=== PATIENT | female | born 1995 | race American Indian/Alaskan Native ===

== ENCOUNTER 2018-01-28 14:11 | Emergency (ER) | payer SELFPAY ==
[2018-01-28 14:30] VITALS: TEMP 98
--- NOTE | 2018-01-28 16:26 | C.PDOC ---
History Of Present Illness Patient is a 22 y/o female who presents to the ED with a complaint of right shoulder pain s/p slipping and falling yesterday. Patient reports falling onto right shoulder. Denies any weakness or numbness. No other physical complaints at this time. Time Seen by Provider: 01/28/18 14:34 Chief Complaint (Nursing): Upper Extremity Problem/Injury History Per: Patient History/Exam Limitations: no limitations Onset/Duration Of Symptoms: Days (yesterday) Current Symptoms Are (Timing): Still Present Recent travel outside of the [place]: No Past Medical History Reviewed: Historical Data, Nursing Documentation, Vital Signs Vital Signs: Last Vital Signs Temp 98.0 F 01/28/18 16:34 Pulse 80 01/28/18 16:34 Resp 18 01/28/18 16:34 BP 124/72 01/28/18 16:34 Pulse Ox 100 01/28/18 19:03 - Medical History PMH: No Chronic Diseases Surgical History: No Surg Hx Family History: States: No Known Family Hx - Social History Hx Tobacco Use: No Hx Alcohol Use: No Hx Substance Use: No - Immunization History Hx Tetanus Toxoid Vaccination: No Hx Influenza Vaccination: No Hx Pneumococcal Vaccination: No Review Of Systems Musculoskeletal: Positive for: Shoulder Pain (right shoulder ) Neurological: Negative for: Weakness, Numbness Physical Exam - Physical Exam Appears: Well, No Acute Distress Skin: Normal Color, Warm, Dry Head: Atraumatic, Normacephalic Eye(s): bilateral: Normal Inspection Oral Mucosa: Moist Neck: Normal ROM, No Midline Cervical Tenderness, No Paracervical Tenderness Chest: No Deformity, No Tenderness Gastrointestinal/Abdominal: Soft, No Tenderness Extremity: No Normal ROM (decreased ROM of right shoulder secondary to pain), Tenderness (diffuse tenderness to palpation to right shoulder area), No Swelling , Other (negative bruising or erythema to right shoulder ) Neurological/Psych: Oriented x3, Normal Speech, Normal Cognition ED Course And Treatment O2 Sat by Pulse Oximetry: 100 - Other Rad Right shoulder XR X-Ray: Interpreted by Me, Viewed By Me Interpretation: Right shoulder three views. History: Fall. Shoulder injury. Comparison: None available. Findings: No evidence of acute displaced fracture or dislocation. Joint spaces are preserved. Impression: Negative acute. If pain persists, consider MRI. Progress Note: Right shoulder XR ordered. Arm sling applied to right arm. Patient is stable for discharge. Disposition - Disposition Referrals: Rafael Claros III, MD [Staff Provider] - Disposition: HOME/ ROUTINE Disposition Time: 16:23 Condition: STABLE Additional Instructions: Follow up with PMD and Orthopedist within 1-2 days. Return to ED if feel worse. Prescriptions: Ibuprofen [Motrin Tab] 600 mg PO Q8 #30 tab Instructions: Shoulder Sprain Forms: [employer] (Sing[place]an) - Clinical Impression Clinical Impression: Shoulder sprain - Scribe Statement The provider has reviewed the documentation as recorded by the Scribe Ann Diamond All medical record entries made by the Scribe were at my direction and personally dictated by me. I have reviewed the chart and agree that the record accurately reflects my personal performance of the history, physical exam, medical decision making, and the department course for this patient. I have also personally directed, reviewed, and agree with the discharge instructions and disposition.
[2018-01-28 16:36] VITALS: BP 124/72; PULSE 80; RESP 18
--- NOTE | 2018-01-28 17:41 | RAD ---
Right shoulder three views History: Fall. Shoulder injury. Comparison: None available. Findings: No evidence of acute displaced fracture or dislocation. Joint spaces are preserved. Impression: Negative acute. If pain persists, consider MRI.
[2018-01-28 18:04] VITALS: O2SAT 100
== END 2018-01-28 16:34 | disposition home or self-care (01) ==
LOC: C.ER 14:11
DX: S43.401A Unspecified sprain of right shoulder joint, initial encounter (principal); W01.0XXA Fall on same level from slipping, tripping and stumbling without subsequent striking against object, initial encounter; Y92.9 Unspecified place or not applicable

== ENCOUNTER 2018-05-31 11:41 | Emergency (ER) | payer BC ==
[2018-05-31 12:06] VITALS: BMI 42.4
[2018-05-31 12:30] LABS: HCG,QUALITATIVE URINE NEGATIVE (NEGATIVE)
[2018-05-31 12:34] LABS: SQUAMOUS EPITHIAL 1 /hpf (0-5); URINE BILIRUBIN NEGATIVE (NEGATIVE); URINE BLOOD NEGATIVE (NEGATIVE); URINE CLARITY Clear (Clear); URINE COLOR Yellow (YELLOW); URINE GLUCOSE (UA) NORMAL (Normal); URINE LEUKOCYTE ESTERASE TRACE Leu/uL (Negative); URINE PROTEIN NEGATIVE (NEGATIVE); URINE UROBILINOGEN NORMAL mg/dL (0.2-1.0)
--- NOTE | 2018-05-31 12:48 | C.PDOC ---
History Of Present Illness 22 yo female come in for evaluation of suprapubic pain gradually developed for past 2 weeks. Pt reports, " feels like fullness in my bladder". Patient also reports, mild white vaginal discharge. Otherwise, pt denies fever, chills, recent illness or abx use, denies abd. pain, N/V./D, UTI sx, back pain, denies vaginal bleeding. LNMP 05/15/18. Ambulate to ED for evaluation, not in any apparent distress. Time Seen by Provider: 05/31/18 12:11 Chief Complaint (Nursing): Abdominal Pain History Per: Patient Past Medical History Reviewed: Historical Data, Nursing Documentation, Vital Signs Vital Signs: Last Vital Signs Temp 97.9 F 05/31/18 12:06 Pulse 88 05/31/18 12:06 Resp 18 05/31/18 12:06 BP 126/83 05/31/18 12:06 Pulse Ox 99 05/31/18 12:06 - Medical History PMH: HTN Other PMH: Obese Surgical History: No Surg Hx Family History: States: No Known Family Hx - Social History Hx Tobacco Use: No Hx Alcohol Use: No Hx Substance Use: No - Immunization History Hx Tetanus Toxoid Vaccination: No Hx Influenza Vaccination: No Hx Pneumococcal Vaccination: No Review Of Systems Except As Marked, All Systems Reviewed And Found Negative. Constitutional: Negative for: Fever, Chills ENT: Negative for: Throat Pain Cardiovascular: Negative for: Chest Pain Respiratory: Negative for: Cough, Shortness of Breath Gastrointestinal: Positive for: Other (suprapubic pain). Negative for: Nausea, Vomiting, Abdominal Pain, Diarrhea Genitourinary: Positive for: Vaginal Discharge. Negative for: Dysuria, Incontinence, Vaginal Bleeding Musculoskeletal: Negative for: Neck Pain, Back Pain Skin: Negative for: Rash Neurological: Negative for: Weakness, Numbness, Headache, Dizziness Physical Exam - Physical Exam Appears: Well, Non-toxic, No Acute Distress Skin: Normal Color, Warm, Dry, No Rash Head: Normacephalic Eye(s): bilateral: PERRL Nose: No Flaring, No Discharge Oral Mucosa: Moist, No Drooling Tongue: Normal Appearing Lips: Normal Appearing Throat: No Erythema, No Drooling Neck: Normal ROM, Trachea Midline, Supple Gastrointestinal/Abdominal: Soft, Tenderness (mild suprapubic pain), No Distention, No Guarding, No Rebound Back: No CVA Tenderness Pelvic: Normal Bimanual Exam, Vaginal Discharge (mod amount of thick white discharge), No Cervical Motion Tenderness, No Cervix Open, No Adnexal Tenderness Extremity: Normal ROM, No Pedal Edema, No Deformity Neurological/Psych: Oriented x3, Normal Speech ED Course And Treatment O2 Sat by Pulse Oximetry: 99 Pulse Ox Interpretation: Normal Progress Note: On re-eval, pt is afebrile, hemodynamicaly stable. Non-toxic. Neck: Supple. ENT: no acute findings. Abd: benign, (-) guarding, (-) rebound. Back: (-) CVA tenderness. Neurologicaly intact. UA results review -normal study. Preg (-). Pt has clinical findings c/w suprapubic pain, vulvovaginitis candidial. Pt advised on course of ds. ref. to f/u with PMD, [facility] in 2-3 days for re-eval. return to Ed if any worsening or new changes. Disposition Counseled Patient/Family Regarding: Studies Performed, Diagnosis, Need For Followup, Rx Given - Disposition [facility]errals: [facility] [Outside] Disposition: HOME/ ROUTINE Disposition Time: 12:45 Condition: STABLE Additional Instructions: Take medication as prescribed Encourage fluids Follow up with PMD, [facility] in 2-3 days for re-evaluation, possible pelvic US. return to ED if any worsening or new changes. Prescriptions: Ciprofloxacin [Cipro] 500 mg PO BID #6 tab Miconazole/Cleanser 17 On Wipe [Monistat 7 Combination Pack] 1 each VG HS #1 kit Instructions: Vulvovaginal Yeast Infection - Clinical Impression Clinical Impression: Suprapubic pain, Vulvovaginal candidiasis
[2018-05-31 13:25] VITALS: BP 123/76; PULSE 68; RESP 16; TEMP 98.2; O2SAT 100
== END 2018-05-31 13:24 | disposition home or self-care (01) ==
LOC: C.ER 11:41
DX: B37.3 Candidiasis of vulva and vagina (principal); I10 Essential (primary) hypertension; R10.9 Unspecified abdominal pain